=== PATIENT | male | born 1985 | race African-American/Black ===

== ENCOUNTER 2020-08-11 21:04 | Observation (INO) | payer BC ==
[~2020-08-11] VITALS: Ht 170.2 cm; Wt 99.8 kg
[~2020-08-11 21:04] MED LIST: ABILIFY20 MG PO; APAP/BUTALBITAL1 TAB PO; CYCLOBENZAPRINE10 MG PO; HYDROCODONE-APA1 TAB PO; MEDROL DOSE PACK4 MG PO; MUPIROCIN22 GM TOPICAL; PROVENTIL/2.5 MG/3 M NEB; TYLENOL W/CODEI1 TAB PO; VALIUM 2 MG TAB2 MG PO
[2020-08-11 21:22] VITALS: Ht 170.2 cm; Wt 99.8 kg
[2020-08-11 22:34] LABS: APTT 23.4 SECONDS (22.8-39.4); INR 1.05 (0.85-1.17); PROTIME 12.6 SECONDS (11.6-15.0)
[2020-08-11 22:47] LABS: ANION GAP 14.2 mmol/L (8-16); CALCIUM 9.5 mg/dL (8.5-10.1); CARBON DIOXIDE 27.2 mmol/L (21.0-32.0); CREATININE - SERUM 1.3 mg/dL (0.6-1.3); POTASSIUM - SERUM 3.4 mmol/L (3.5-5.1)
[2020-08-11 23:00] LABS: ALBUMIN 4.5 g/dL (3.4-5.0); BILIRUBIN - TOTAL 0.48 mg/dL (0.2-1.3); PROTEIN - SERUM 8.1 g/dL (6.4-8.2)
[2020-08-11 23:55] LABS: BASOPHILS 0.6 % (0-2); EOSINOPHILS 1.3 % (0-7); HEMATOCRIT 42.1 % (42.0-54.0); IMMATURE GRANULOCYTES 0.1 % (0-5); LYMPHOCYTE ABS# 2.96 10x3/uL (1.32-3.57); LYMPHOCYTES 37.4 % (15-50); MCHC 33.3 g/dL (31.0-37.0); MCV 96.1 fL (80.0-100.0); MEAN PLATELET VOLUME 10.8 fL (7.4-10.4); NEUTROPHIL ABS# 4.24 10x3/uL (1.78-5.38); NEUTROPHILS 53.6 % (40-80); PLATELET COUNT 378 10x3/uL (130-400); RBC 4.38 10x6/uL (4.20-6.10); RDW 12.8 % (11.5-14.5); WBC 7.9 10x3/uL (4.8-10.8)
[2020-08-12 06:49] VITALS: BP 112/70
--- NOTE | 2020-08-12 07:00 | NUR ---
0700: RECEIVED REPORT FROM ALICE LAWRENCE. PT A&OX3, GCS 15, RR EVEN & UNLABORED, NO S/S OF ACUTE DISTRESS NOTED AT THIS TIME, WILL CONTINUE TO MONITOR. 0745: CONSENTS SIGNED AT THIS TIME, PT ASKING FOR PAIN MEDS. 0750: PHYSICIAN BEDSIDE AT THIS TIME TO SEE PT BEFORE OPERATION PROCEEDURE. 0758: PT GIVEN PAIN MEDS BY ALICE ANGELES. SEE APR. 0851: PT RESTING IN ROOM AT THIS TIME, NO S/S OF ACUTE DISTRESS NOTED, WRIST BAND PLACED ON PT, PT ID VERIFIED. WILL CONTINUE TO MONITOR.
--- NOTE | 2020-08-12 09:42 | NUR ---
0915: INPATIENT PHYSICIAN TO PT BEDSIDE AT THIS TIME. 0930: MEDS GIVEN, SEE APR. 40: PT AMBULATED. PT AMBULATES WITH A STEADY GAIT, PHYSICIAN INFORMED. 0943: PHARMACY BROUGHT UP REMAINING PT MEDS NOT FOUND IN MED DISPENSER.
[2020-08-12 14:51] VITALS: BP 112/81
[2020-08-12] MEDS ORDERED: TYLENOL W/CODEI1 TAB PO (15:26)
[2020-08-12] MEDS ORDERED: BACTRIM DS TAB1 EAC1 PO (15:27)
== END 2020-08-12 16:06 ==
LOC: D.ER 21:04 → OBSVTIME 22:34 → D.EDHOLD 22:34
PROVIDERS: Family Medicine; ADMIT Surgery; ATTEND Surgery
DX: S41.121A Laceration with foreign body of right upper arm, initial encounter (principal); S49.81XA Other specified injuries of right shoulder and upper arm, initial encounter; W25.XXXA Contact with sharp glass, initial encounter; Y93.9 Activity, unspecified; Y92.9 Unspecified place or not applicable